=== PATIENT | male | born 1970 | race Caucasian/White ===

== ENCOUNTER 2022-04-06 12:08 | Emergency (ER) | payer MEDICARE, OTHER ==
[~2022-04-06] VITALS: Ht 182.9 cm; Wt 100.0 kg
[2022-04-06 14:11] LABS: BASOPHILS # (AUTO) 0.1 X10'3 (0-0.2); BASOPHILS % (AUTO) 0.8 % (0-1); EOSINOPHILS # (AUTO) 0.1 X10'3 (0-0.9); EOSINOPHILS % (AUTO) 1.9 % (0-6); HEMATOCRIT 40.1 % (42.0-52.0); HEMOGLOBIN 13.5 g/dl (14.0-17.9); LYMPHOCYTES # (AUTO) 2.1 X10'3 (1.1-4.8); LYMPHOCYTES % (AUTO) 26.9 % (21-51); MEAN CORPUSCULAR HEMOGLOBIN 32.8 PG (27.0-31.0); MEAN CORPUSCULAR HGB CONC 33.6 g/dL (33.0-36.5); MEAN CORPUSCULAR VOLUME 97.7 FL (78-98); MONOCYTES # (AUTO) 0.8 X10'3 (0-0.9); NEUTROPHILS # (AUTO) 4.6 X10'3 (1.8-7.7); NEUTROPHILS % (AUTO) 59.4 % (42-75); PLATELET COUNT 381 X10'3 (140-440); RED CELL DISTRIBUTION WIDTH 20.6 % (11.5-14.5); WHITE BLOOD COUNT 7.7 X10'3 (4.5-11.0)
[2022-04-06 14:29] LABS: ANISOCYTOSIS 3+; PLATELET ESTIMATE NORMAL
[2022-04-06 14:30] LABS: BURR CELLS FEW; ELLIPTOCYTES FEW
[2022-04-06] MEDS ORDERED: normal saline 1000ML IV soln IVB ONE (14:30)
[2022-04-06 14:31] LABS: LARGE PLATELETS FEW
[2022-04-06 14:36] LABS: ALANINE AMINOTRANSFERASE 11 U/L (12-78); ALBUMIN 3.3 G/DL (3.4-5.0); ALBUMIN/GLOBULIN RATIO 0.8 (1.1-1.5); ANION GAP 9 (8-16); ASPARTATE AMINO TRANSFERASE 17 U/L (10-37); BILIRUBIN,TOTAL 1.8 MG/DL (0.1-1.0); BLOOD UREA NITROGEN 7 MG/DL (7-18); BUN/CREATININE RATIO 9.3 (5.4-32.0); CHLORIDE 101 MMOL/L (99-107); CREATININE 0.75 MG/DL (0.60-1.10); GLUCOSE 118 MG/DL (70-104); LIPASE 52 U/L (73-393); MAGNESIUM 1.4 MG/DL (1.5-2.4); SODIUM 139 MMOL/L (135-145); TOTAL PROTEIN 7.2 G/DL (6.4-8.2); eGFR > 90 ML/MIN
[2022-04-06] MEDS ORDERED: POTASSIUM BICARB 20meq eff tab 20 MEQ TABLET.EFF PO STA (14:43)
[2022-04-06 14:44] LABS: POTASSIUM 2.7 MMOL/L (3.5-5.1)
[2022-04-06 14:58] LABS: ALKALINE PHOSPHATASE 98 IU/L (46-116)
[2022-04-06 15:05] VITALS: BP 95/78
== END 2022-04-06 16:26 | disposition home or self-care (01) ==
LOC: ER 12:09
DX: E87.6 Hypokalemia (principal); Z95.811 Presence of heart assist device; R19.7 Diarrhea, unspecified; Z88.0 Allergy status to penicillin; Z88.8 Allergy status to other drugs, medicaments and biological substances
CPT/HCPCS: 36415; 71045; 80053; 83690; 83735; 83880; 84484; 85008; 85025; 85610; 93005; 96360; 99285; J7030

== ENCOUNTER 2024-03-31 12:32 | Emergency (ER) | payer OTHER ==
[~2024-03-31] VITALS: Ht 182.9 cm; Wt 93.2 kg
[2024-03-31 13:13] VITALS: TEMP 97.9
[2024-03-31 14:14] LABS: BASOPHILS # (AUTO) 0.1 X10'3 (0-0.2); BASOPHILS % (AUTO) 0.6 % (0-1); EOSINOPHILS # (AUTO) 0.2 X10'3 (0-0.9); EOSINOPHILS % (AUTO) 2.1 % (0-6); HEMATOCRIT 44.5 % (42.0-52.0); HEMOGLOBIN 14.6 g/dl (14.0-17.9); LYMPHOCYTES # (AUTO) 2.1 X10'3 (1.1-4.8); LYMPHOCYTES % (AUTO) 19.1 % (21-51); MEAN CORPUSCULAR HEMOGLOBIN 28.3 PG (27.0-31.0); MEAN CORPUSCULAR HGB CONC 32.9 g/dL (33.0-36.5); MEAN CORPUSCULAR VOLUME 86.2 FL (78-98); MEAN PLATELET VOLUME 8.4 FL (7.4-10.4); MONOCYTES # (AUTO) 1.2 X10'3 (0-0.9); NEUTROPHILS # (AUTO) 7.5 X10'3 (1.8-7.7); NEUTROPHILS % (AUTO) 67.2 % (42-75); PLATELET COUNT 335 X10'3 (140-440); RED BLOOD COUNT 5.16 X10'6 (4.70-6.10); RED CELL DISTRIBUTION WIDTH 17.8 % (11.5-14.5); WHITE BLOOD COUNT 11.2 X10'3 (4.5-11.0)
[2024-03-31 14:25] LABS: ALANINE AMINOTRANSFERASE 16 U/L (12-78); ALBUMIN 3.6 G/DL (3.4-5.0); ALBUMIN/GLOBULIN RATIO 0.8 (1.1-1.5); ALKALINE PHOSPHATASE 104 IU/L (46-116); ANION GAP 10 (8-16); ASPARTATE AMINO TRANSFERASE 23 U/L (10-37); BILIRUBIN,TOTAL 1.7 MG/DL (0.1-1.0); BLOOD UREA NITROGEN 4 MG/DL (7-18); BUN/CREATININE RATIO 4.7 (10.0-20.0); CALCIUM 8.8 MG/DL (8.5-10.1); CHLORIDE 102 MMOL/L (99-107); CREATININE 0.85 MG/DL (0.60-1.10); GLUCOSE 123 MG/DL (70-104); POTASSIUM 4.1 MMOL/L (3.5-5.1); SODIUM 140 MMOL/L (135-145); TOTAL CARBON DIOXIDE 28.5 MMOL/L (24-32); TOTAL PROTEIN 8.4 G/DL (6.4-8.2); eCRCL 109 ML/MIN; eGFR > 90 ML/MIN
[2024-03-31 15:26] LABS: MAGNESIUM 1.3 MG/DL (1.5-2.4)
[2024-03-31] MEDS: magnesium oxide 400mg tablet PO ONE (15:50)
[2024-03-31] MEDS: magnesium 2GM in 50ml NS 50 ML IV ONE (15:51)
[2024-03-31] MEDS: normal saline 1000ml 1,000 ML IV ONE (15:55)
[2024-03-31] MEDS: normal saline 1000ML IV soln IVB ONE (15:55)
[2024-03-31 16:09] LABS: APTT 41 SECONDS (22-32); INR 2.8 INR
[2024-03-31 17:00] VITALS: BP 100/82; PULSE 72; RESP 16; O2SAT 97
== END 2024-03-31 17:36 | disposition home or self-care (01) ==
LOC: ER 12:33
DX: R61 Generalized hyperhidrosis (principal); E83.42 Hypomagnesemia; R53.1 Weakness; R53.83 Other fatigue; Z95.818 Presence of other cardiac implants and grafts; Z88.0 Allergy status to penicillin; Z88.8 Allergy status to other drugs, medicaments and biological substances
CPT/HCPCS: 36415; 71045; 80053; 83605; 83735; 84145; 84484; 85025; 85610; 85651; 85730; 87040; 93005; 96365; 99285; J3475; J7030

== ENCOUNTER 2024-09-22 11:39 | Emergency (ER) | payer OTHER, MEDICARE ==
[~2024-09-22] VITALS: Ht 182.9 cm; Wt 90.9 kg
[2024-09-22 12:05] VITALS: TEMP 98.6
[2024-09-22 12:45] LABS: BASOPHILS # (AUTO) 0.1 X10'3 (0-0.2); EOSINOPHILS # (AUTO) 0.3 X10'3 (0-0.9); EOSINOPHILS % (AUTO) 2.8 % (0-6); HEMATOCRIT 29.4 % (42.0-52.0); LYMPHOCYTES # (AUTO) 1.8 X10'3 (1.1-4.8); LYMPHOCYTES % (AUTO) 18.6 % (21-51); MEAN CORPUSCULAR HEMOGLOBIN 22.3 PG (27.0-31.0); MEAN CORPUSCULAR HGB CONC 30.7 g/dL (33.0-36.5); MEAN CORPUSCULAR VOLUME 72.7 FL (78-98); MEAN PLATELET VOLUME 7.4 FL (7.4-10.4); MONOCYTES # (AUTO) 1.5 X10'3 (0-0.9); MONOCYTES % (AUTO) 15.5 % (2-12); NEUTROPHILS % (AUTO) 62.1 % (42-75); PLATELET COUNT 403 X10'3 (140-440); RED BLOOD COUNT 4.04 X10'6 (4.70-6.10); RED CELL DISTRIBUTION WIDTH 22.6 % (11.5-14.5); WHITE BLOOD COUNT 9.7 X10'3 (4.5-11.0)
[2024-09-22 13:06] LABS: ALBUMIN 3.3 G/DL (3.4-5.0); ANION GAP 6 (8-16); BLOOD UREA NITROGEN 5 MG/DL (7-18); BUN/CREATININE RATIO 4.6 (10.0-20.0); CALCIUM 7.8 MG/DL (8.5-10.1); CHLORIDE 102 MMOL/L (99-107); CREATININE 1.08 MG/DL (0.60-1.10); GLUCOSE 156 MG/DL (70-104); PRO BRAIN NATRIURETIC PEPTIDE 208 PG/ML (0-125); SODIUM 140 MMOL/L (135-145); TOTAL CARBON DIOXIDE 32.2 MMOL/L (24-32); eCRCL 85 ML/MIN; eGFR 71 ML/MIN
[2024-09-22] MEDS ORDERED: AZIT250T83 PO (13:28)
[2024-09-22] MEDS: potassium Cl 20 mEq SR tablet PO ONE (13:43)
[2024-09-22] MEDS: CefTRIAXone 1000mg IM Kit (w/lidocaine diluent) IM ONE (13:43)
[2024-09-22 14:01] VITALS: BP 116/82; PULSE 78; RESP 17; O2SAT 96
[2024-09-22 15:33] LABS: TOTAL CELLS COUNTED 100
[2024-09-22 15:46] LABS: ANISOCYTOSIS 3+; PLATELET ESTIMATE NORMAL
[2024-09-22 15:47] LABS: HYPOCHROMASIA 1+; MICROCYTOSIS 1+; POLYCHROMASIA FEW
== END 2024-09-22 14:04 | disposition home or self-care (01) ==
LOC: ER 11:39
DX: J06.9 Acute upper respiratory infection, unspecified (principal); Z88.0 Allergy status to penicillin; Z88.8 Allergy status to other drugs, medicaments and biological substances; Z88.5 Allergy status to narcotic agent
CPT/HCPCS: 36415; 71045; 80048; 83735; 83880; 84484; 85007; 85025; 93005; 96372; 99285; J0696